=== PATIENT | male | born 1985 | race Caucasian/White ===

== ENCOUNTER → 2016-07-15 | Outpatient (CLI) | payer OTHER ==
[~2016-07-15] MED LIST: GADOBUTROL 7.5 MMOL/7.5 ML VIAL INT ART ONE; IOHEXOL 300 MG/ML 50 ML VIAL. INT ART ONE; LIDOCAINE 1% Multi-Dose 20 ML VIAL. ID ONE
--- NOTE | 2016-07-15 11:34 | KCIC ---
PROCEDURE Fluoroscopically guided left shoulder injection for MR arthrography. HISTORY Left shoulder pain and mechanical symptoms. MR arthrography is requested. FINDINGS The procedure along with its risks and benefits were explained to the patient. He agreed to proceed. A time-out procedure was performed. The left glenohumeral joint was visualized fluoroscopically. The overlying skin was sterilely prepped and infiltrated with 1 percent lidocaine for local anesthesia. Under fluoroscopic guidance, a 22-gauge spinal needle was advanced into the left glenohumeral joint. Intraarticular positioning was confirmed with a small injection of iodinated contrast. 12 mL 1:200 dilution gadolinium contrast in saline and iodinated contrast were instilled under fluoroscopic control. Instrumentation was withdrawn and a sterile dressing placed. There were no immediate complications. Four fluoroscopic images were obtained. Fluoro time 74 seconds. IMPRESSION - Successful fluoroscopic guided left shoulder injection. Electronically signed by: Arcenio Bazan (Jul 15, 2016 11:33:30)
--- NOTE | 2016-07-15 12:32 | KCIC ---
PROCEDURE MR arthrogram left shoulder with intra-articular contrast. HISTORY Left shoulder pain and limited range of motion. Mechanical symptoms. TECHNIQUE MRI of the left shoulder was performed after the intra-articular administration of gadolinium contrast. Refer to the procedure report for description of the injection. FINDINGS Acromioclavicular osteoarthritis is mild. There is moderate lateral acromial downsloping. The acromion is type 2. There is no clear bursitis. There is no rotator cuff tear. Mildly increased signal at the anterior supraspinatus insertion is consistent with mild tendinopathy. The rotator cuff musculature is normal in size and signal. The long head biceps tendon is intact and located in the groove. A tear of the superior labrum extends from the biceps anchor through the posterior labrum and inferior labrum. There is a multilobulated paralabral cyst along the posterior labrum extending from the 2:00 to 4:00 position. Altogether, the lobules span 2.2 centimeters cranio caudally. And up to a 7 millimeters short axis. The most proximal is just distal to the spinal glenoid notch. There is no evidence of denervation. The glenohumeral articular cartilage demonstrates no focal defects. Alignment is maintained. IMPRESSION - A tear of the superior glenoid labrum extends from the biceps anchor through the posterior labrum to the inferior labrum. A paralabral cyst posteriorly measures 2.2 x 0.7 centimeters. - Anterior insertional supraspinatus tendinopathy. No rotator cuff tear. - Moderate lateral acromial downsloping. Correlate for impingement. Electronically signed by: Arcenio Bazan (Jul 15, 2016 12:31:09)
--- NOTE | 2016-07-15 13:00 | KCIC ---
PROCEDURE MRI left knee without contrast. HISTORY Chronic left knee pain. TECHNIQUE MRI of the left knee was performed without intravenous contrast. FINDINGS The anterior cruciate ligament and posterior cruciate ligament are intact. The medial collateral ligament and lateral collateral ligament complex are intact. The extensor mechanism and patellar retinacula are intact. There is a longitudinal focus of signal along the undersurface the posterior horn of the lateral meniscus at its junction with the meniscocapsular attachment. Medial meniscus appears intact. The articular cartilage demonstrates no focal defects. There is no joint effusion. IMPRESSION - A small longitudinal focus of signal along the undersurface of the posterior horn of the lateral meniscus is at the level of the meniscocapsular attachment. This may be a small superficial tear, and old healed tear or an anatomic variant. Correlate for posterior-lateral symptoms or a known remote injury. - No other internal derangement is identified. Electronically signed by: Arcenio Bazan (Jul 15, 2016 12:57:52)
== END | disposition home or self-care (01) ==
LOC: KCIC 10:26
PROVIDERS: ATTEND Family Medicine
DX: M25.512 Pain in left shoulder (principal)
CPT/HCPCS: 73040; 73222; 73721; Q9967; A9585